=== PATIENT | female | born 1980 | race African-American/Black ===

== ENCOUNTER 2016-08-07 21:17 | Emergency (ER) | payer OTHER ==
[~2016-08-07] VITALS: Ht 162.6 cm; Wt 73.0 kg
[~2016-08-07 21:17] MED LIST: ASPIR-LOW81 MG PO; MONO-LINYAH1 EACH PO; Motrin PO; NOHOMEMEDS; PRENATAL PLUS1 EAC1 PO
[2016-08-07 22:31] LABS: INFLUENZA A VIRAL ANTIGEN NEGATIVE; INFLUENZA B VIRAL ANTIGEN NEGATIVE
[2016-08-07 23:40] VITALS: BP 129/93
== END 2016-08-07 23:41 | disposition home or self-care (01) ==
LOC: EME 21:17
PROVIDERS: Emergency Medicine
DX: J06.9 Acute upper respiratory infection, unspecified (principal); R07.0 Pain in throat; Z88.5 Allergy status to narcotic agent
CPT/HCPCS: 70360; 87502; 87651 90; 99281; 99284